=== PATIENT | male | born 2000 | race Caucasian/White ===

== ENCOUNTER → 2018-05-26 | Outpatient (REF) | payer OTHER ==
[2018-05-26 20:18] LABS: HEMATOCRIT 44.1 % (42.0-52.0); MEAN CORPUSCULAR HEMOGLOBIN 28.2 pg (27.0-33.0); MEAN CORPUSCULAR VOLUME 82.9 fl (80.0-96.0); PLATELET COUNT, AUTOMATED 234 10^3/uL (150-450); RED BLOOD COUNT 5.32 10^6/uL (4.30-6.10); RED CELL DISTRIBUTION WIDTH 12.9 % (11.5-14.5); WHITE BLOOD COUNT 7.2 10^3/uL (4.0-10.0)
[2018-05-26 20:32] LABS: RHEUMATOID FACTOR QUANT < 10.0 IU/ML (<15.0)
[2018-05-26 20:32] LABS: C REACTIVE PROTEIN QUANTITATIV < 0.30 MG/DL (0.00-0.30)
[2018-05-26 20:45] LABS: ERYTHROCYTE SEDIMENTATION RATE 1 mm/hr (0-15)
[2018-05-29 00:07] LABS: ANTINUCLEAR ANTIBODIES DIRECT Negative (Negative); Lyme Disease IgG/IgM Antibodie <0.91 ISR (0.00-0.90); Lyme Disease IgM Ab Quantitati <0.80 index (0.00-0.79)
== END ==
LOC: M SFHCLERA 17:41
DX: M25.561 Pain in right knee (principal)

== ENCOUNTER 2018-07-24 13:20 | Emergency (ER) | payer OTHER | END 2018-07-24 14:07 | disposition home or self-care (01) | LOC: M ED 13:20 | DX: R07.89 Other chest pain (principal) | CPT/HCPCS: 71046 ==

== ENCOUNTER 2025-04-05 15:50 | Emergency (ER) | payer OTHER, SELFPAY ==
[~2025-04-05] VITALS: Ht 170.2 cm; Wt 72.7 kg
[~2025-04-05 15:50] MED LIST: IBUP-1022 PO
[2025-04-05 16:08] VITALS: BP 146/75; TEMP 98.8; O2SAT 98
[2025-04-05 16:17] LABS: PLATELET COUNT, AUTOMATED 263 10^3/uL (150-450)
[2025-04-05 16:47] LABS: AMPHETAMINES LEVEL URINE NEGATIVE (NEGATIVE); BARBITURATES URINE NEGATIVE (NEGATIVE); BENZODIAZEPINES URINE NEGATIVE (NEGATIVE); CANNABINOIDS URINE NEGATIVE (NEGATIVE); COCAINE METABOLITE URINE NEGATIVE (NEGATIVE); METHADONE URINE NEGATIVE (NEGATIVE); OPIATES URINE NEGATIVE (NEGATIVE); PHENCYCLIDINE URINE NEGATIVE (NEGATIVE)
[2025-04-05 16:59] LABS: ETHYL ALCOHOL (ETHANOL) 0.003 % (0.000-0.010)
[2025-04-05 17:01] LABS: ALT/SGPT 64 U/L (7.0-40); AST/SGOT 29 U/L (<34); CALCIUM LEVEL 9.9 MG/DL (8.5-10.1); CARBON DIOXIDE LEVEL 28 MMOL/L (20-31); CHLORIDE LEVEL 102 MMOL/L (98-107); CREATININE FOR GFR 0.77 MG/DL (0.70-1.30); GLOMERULAR FILTRATION RATE > 90.0 (>60); POTASSIUM SERUM 4.2 MMOL/L (3.5-5.1); SALICYLATE LEVEL < 3.0 MG/DL (<30); SODIUM LEVEL 141 MMOL/L (136-145)
== END 2025-04-05 18:55 | disposition home or self-care (01) ==
LOC: EDUNIT# 15:50 → M ED 15:50 → EDBD 15:50 → M ED 18:55
DX: F43.0 Acute stress reaction (principal); Z79.1 Long term (current) use of non-steroidal anti-inflammatories (NSAID)